=== PATIENT | male | born 1985 ===

== ENCOUNTER 2017-01-17 18:19 | Emergency (ER) | payer OTHER ==
--- NOTE | 2017-01-17 19:37 | C.PDOC ---
History Of Present Illness Patient presents to the ER with a complaint of left flank pain worsening within the last week. Patient states the pain has worsened today and notes he has taken motrin with no relief. Denies dysuria, fever, chills, nausea or vomiting. Time Seen by Provider: 01/17/17 19:36 Chief Complaint (Nursing): Abdominal Pain History Per: Patient History/Exam Limitations: no limitations Onset/Duration Of Symptoms: Days (7) Current Symptoms Are (Timing): Still Present Severity: Moderate Pain Scale Rating Of: 4 Location Of Pain/Discomfort: Other (Left flank) Radiation Of Pain To:: None Quality Of Discomfort: Unable To Describe Associated Symptoms: denies: Fever, Chills, Nausea, Vomiting, Urinary Symptoms Exacerbating Factors: None Alleviating Factors: None Recent travel outside of the [place]: No Past Medical History Reviewed: Historical Data, Nursing Documentation, Vital Signs Vital Signs: Last Vital Signs Temp 97.9 F 01/17/17 21:31 Pulse 104 H 01/17/17 21:31 Resp 20 01/17/17 21:31 BP 150/69 01/17/17 21:31 Pulse Ox 100 01/17/17 21:31 - Medical History PMH: No Chronic Diseases Surgical History: No Surg Hx Family History: States: No Known Family Hx - Social History Hx Alcohol Use: Yes Hx Substance Use: No - Immunization History Hx Influenza Vaccination: No Review Of Systems Constitutional: Negative for: Fever, Chills Gastrointestinal: Negative for: Nausea, Vomiting Genitourinary: Negative for: Dysuria Musculoskeletal: Positive for: Other (Left flank pain) Physical Exam - Physical Exam Appears: Non-toxic Skin: Warm, Dry Oral Mucosa: Moist Chest: Symmetrical, No Tenderness Cardiovascular: Rhythm Regular, No Murmur Respiratory: No Rales, No Rhonchi, No Wheezing Gastrointestinal/Abdominal: Soft, No Tenderness, Other (Tympanic to percussion) Back: CVA Tenderness (Mild left) Neurological/Psych: Oriented x3 ED Course And Treatment - Laboratory Results Result Diagrams: 01/17/17 20:16 01/17/17 20:16 O2 Sat by Pulse Oximetry: 98 (Room air) Pulse Ox Interpretation: Normal Progress Note: CT abd/pel w/o contrast, blood work and urinalysis ordered. Pepcid, zofran and IV fluids administered. Reevaluation Time: 22:15 Reassessment Condition: Improved Disposition Counseled Patient/Family Regarding: Studies Performed, Diagnosis, Need For Followup, Rx Given - Disposition Referrals: Nixon Herman MD [Staff Provider] - Disposition: HOME/ ROUTINE Disposition Time: 19:37 Condition: FAIR Prescriptions: Naproxen [Naprosyn] 1 tab PO BID PRN #25 tab PRN Reason: Pain Instructions: Back Pain (ED) - Clinical Impression Clinical Impression: Back pain - Scribe Statement The provider has reviewed the documentation as recorded by the Scribsherly Mock All medical record entries made by the Tonyibe were at my direction and personally dictated by me. I have reviewed the chart and agree that the record accurately reflects my personal performance of the history, physical exam, medical decision making, and the department course for this patient. I have also personally directed, reviewed, and agree with the discharge instructions and disposition.
[2017-01-17] MEDS ORDERED: Sodium Chloride 0.9% 1,000 ML IV ONE (19:55)
[2017-01-17 20:16] LABS: RBC URINE 1 /hpf (0-3); URINE BILIRUBIN NEGATIVE (NEGATIVE); URINE BLOOD 1+ (NEGATIVE); URINE COLOR Yellow (YELLOW); URINE GLUCOSE (UA) NORMAL (Normal); URINE KETONE NEGATIVE (NEGATIVE); URINE LEUKOCYTE ESTERASE NEG Leu/uL (Negative); URINE PROTEIN NEGATIVE (NEGATIVE); URINE UROBILINOGEN NORMAL mg/dL (0.2-1.0); WBC URINE < 1 /hpf (0-5)
[2017-01-17] MEDS ORDERED: Sodium Chloride 0.9% 250 ML IV ONE (20:19)
[2017-01-17 20:23] LABS: BASO % 0.5 % (0.0-2.0); EOS # 0.2 K/uL (0.0-0.7); EOS % 1.9 % (0.0-4.0); HEMATOCRIT 40.6 % (35.0-51.0); LYMPH # 2.4 K/uL (1.0-4.3); LYMPH % 23.8 % (20.0-40.0); MEAN CELL VOLUME 89.1 fL (80.0-94.0); MEAN CORPUSCULAR HEMOGLOBIN 29.6 pg (27.0-31.0); MEAN CORPUSCULAR HGB CONC 33.2 g/dL (33.0-37.0); MEAN PLATELET VOLUME 9.1 fL (7.2-11.7); MONO # 1.1 K/uL (0.0-0.8); MONO % 10.8 % (0.0-10.0); RED CELL DISTRIBUTION WIDTH 12.5 % (11.5-14.5); WHITE BLOOD COUNT 10.3 K/uL (4.8-10.8)
[2017-01-17 20:38] LABS: CHLORIDE 102 mmol/L (98-107)
[2017-01-17 20:39] LABS: POTASSIUM 3.9 mmol/L (3.6-5.2); SODIUM 139 mmol/L (132-148)
[2017-01-17 20:41] LABS: ALB/GLOB RATIO 1.4 (1.0-2.1); ALKALINE PHOSPHATASE 41 U/L (38-126); AST/SGOT 32 U/L (17-59); BILIRUBIN,TOTAL 0.8 mg/dL (0.2-1.3); BLOOD UREA NITROGEN 18 mg/dL (9-20); CARBON DIOXIDE 27 mmol/L (22-30); GFR AFRICAN-AMERICAN > 60; TOTAL PROTEIN 7.2 g/dL (6.3-8.3)
[2017-01-17 20:42] LABS: ALT/SGPT 25 U/L (21-72); CALCIUM 9.2 mg/dl (8.6-10.4); GLUCOSE,RANDOM 101 mg/dL (75-110)
[2017-01-17 22:17] VITALS: O2SAT 98
[2017-01-17 22:46] VITALS: BP 132/88; PULSE 76; RESP 18; TEMP 98.3
--- NOTE | 2017-01-18 10:16 | CT ---
PROCEDURE: CT Abdomen and Pelvis without intravenous contrast HISTORY: Abdominal pain COMPARISON: None. TECHNIQUE: Multiple contiguous axial images were performed through the abdomen and pelvis without intravenous contrast. Subsequently, sagittal and coronal reformatted images were obtained. Radiation dose: Total exam DLP = 1162 mGy-cm. This CT exam was performed using one or more of the following dose reduction techniques: Automated exposure control, adjustment of the mA and/or kV according to patient size, and/or use of iterative reconstruction technique. FINDINGS: LOWER THORAX: Unremarkable. LIVER: Unremarkable. No gross lesion or ductal dilatation. GALLBLADDER AND BILE DUCTS: Not well visualized. Contracted and or resected. PANCREAS: Unremarkable. No gross lesion or ductal dilatation. SPLEEN: Unremarkable. ADRENALS: Unremarkable. No mass. KIDNEYS AND URETERS: Unremarkable. No hydronephrosis. No solid mass. VASCULATURE: Unremarkable. No aortic aneurysm. BOWEL: Unremarkable. No obstruction. No gross mural thickening. APPENDIX: No findings to suggest acute appendicitis. PERITONEUM: Unremarkable. No free fluid. No free air. LYMPH NODES: Unremarkable. No enlarged lymph nodes. BLADDER: Unremarkable. REPRODUCTIVE: Unremarkable. BONES: Suggestion of a posterior disc osteophyte complex at the L5-S1 level. Scattered bone islands in the visualized osseous structures. OTHER FINDINGS: Partially calcified seminal vesicles. IMPRESSION: Negative acute. These findings were preliminarily reported at 9:32 p.m. on 01/17/[address] Alia Garcia from [facility].
== END 2017-01-17 22:35 | disposition home or self-care (01) ==
LOC: C.ER 18:19
DX: M54.6 Pain in thoracic spine (principal)
CPT/HCPCS: 74176; 80053; 81001; 83690; 85025; 96361; 96374; 96375; 99285; J2405; J7040

== ENCOUNTER 2017-05-02 07:19 | Day surgery (SDC) | payer OTHER ==
[2017-04-26 12:17] VITALS: BMI 39.9
[2017-05-02] MEDS ORDERED: Ciprofloxacin 400mg/200ml D5W 400 MG/200 ML BAG IVPB ONE (09:57)
[2017-05-02] MEDS ORDERED: Bupivacaine HCl 0.5% PF (10 ml) Inj ONE ×2 (09:57→10:41)
[2017-05-02] MEDS ORDERED: Propofol 10 mg/ml Inj (20 ML) ONE (10:02)
[2017-05-02] MEDS ORDERED: Midazolam 2 MG/2 ML VIAL ONE (10:02)
[2017-05-02] MEDS ORDERED: HYDROmorphone 0.5 mg/0.5 ml ISec IVP PRN (10:23)
[2017-05-02 11:13] VITALS: O2SAT 100
--- NOTE | 2017-05-02 11:51 | PCM.SURG1 ---
Surgeon's Initial Post Op Note - Surgeon's Notes Surgeon: Jojo CARTER Plastic Sewer: NONE Type of Anesthesia: General LMA Pre-Operative Diagnosis: L VARICOCELE Operative Findings: SAME Post-Operative Diagnosis: SAME Operation Performed: L VARICOCELECTOMY Specimen/Specimens Removed: L VARICOCELE Estimated Blood Loss: EBL {In ML}: 2 Blood Products Given: N/A Drains Used: No Drains Post-Op Condition: Good Date of Surgery/Procedure: 05/02/17 Time of Surgery/Procedure: 10:50
[2017-05-02 12:22] VITALS: RESP 18
[2017-05-02 12:47] VITALS: BP 105/48; PULSE 65; TEMP 97.7
--- NOTE | 2017-05-09 04:16 | OP ---
PROCEDURE DATE: 05/02/2017 PREOPERATIVE DIAGNOSIS: Left varicocele. POSTOPERATIVE DIAGNOSIS: Left varicocele. PROCEDURE: Left varicocelectomy. SURGEON: Dr. Arcelia Bagley. DESCRIPTION OF PROCEDURE: As follows; the patient was placed in the supine position. The abdomen and genitalia prepped and draped in the sterile fashion. Anesthesia was provided by the anesthesiologist. An oblique incision was made overlying the external inguinal ring. Incision was extended through the skin and subcutaneous tissue. Hemostasis was achieved using electrocautery. The incision was extended through Colin's fascia. The spermatic cord was identified at the point of exit from the external inguinal ring. A subinguinal varicocelectomy was thus performed. The spermatic cord was mobilized and circled with a Zoila drain. The spermatic cord was elevated into the wound over the Zoila drain. The external spermatic fascia and few mesenteric layers were incised between fine clamps in the longitudinal direction. The internal spermatic fascia was incised. The varicocele veins were identified and dissected free. The varix was identified and spared. The artery and lymphatic vessels were left intact. The varicocele veins were resected. Proximal and distal double ligatures of 3-0 Dexon were placed. The spermatic cord was reinspected. There were no residual varicocele veins. The vas was intact. The premesenteric and external oblique layers were reapproximated with interrupted sutures of 3-0 Dexon. Marcaine 0.5% was infiltrated into the spermatic cord. Marcaine was infiltrated into the subcutaneous base as well for postoperative analgesia. The spermatic cord was returned to its normal anatomical position. The wound was irrigated and inspected, hemostasis was completed. The subcutaneous tissue was reapproximated with interrupted sutures of 3-0 Dexon. Skin shahid and sterile dressing were applied. The patient tolerated the procedure without complication. Arcelia Bagley MD
== END 2017-05-02 12:45 | disposition home or self-care (01) ==
LOC: C.SDS 07:19
PROVIDERS: ATTEND Urology
DX: I86.1 Scrotal varices (principal)
CPT/HCPCS: 55530; 88302; J0744; J1170; J2250; J2704; J3010

== ENCOUNTER 2017-07-28 14:49 | Emergency (ER) | payer OTHER ==
[2017-07-28 14:50] VITALS: BMI 39.9
[2017-07-28 15:21] VITALS: RESP 20; O2SAT 98
[2017-07-28 16:20] LABS: BASO % 0.6 % (0.0-2.0); EOS # 0.2 K/uL (0.0-0.7); EOS % 2.6 % (0.0-4.0); HEMATOCRIT 41.6 % (35.0-51.0); LYMPH # 2.1 K/uL (1.0-4.3); LYMPH % 26.7 % (20.0-40.0); MEAN CELL VOLUME 90.3 fL (80.0-94.0); MEAN CORPUSCULAR HGB CONC 33.3 g/dL (33.0-37.0); MEAN PLATELET VOLUME 8.2 fL (7.2-11.7); MONO # 0.7 K/uL (0.0-0.8); MONO % 8.8 % (0.0-10.0); RED CELL DISTRIBUTION WIDTH 12.4 % (11.5-14.5); WHITE BLOOD COUNT 7.8 K/uL (4.8-10.8)
[2017-07-28 16:36] LABS: ALB/GLOB RATIO 1.3 (1.0-2.1); ALKALINE PHOSPHATASE 46 U/L (38-126); ALT/SGPT 39 U/L (21-72); AST/SGOT 36 U/L (17-59); BILIRUBIN,TOTAL 0.5 mg/dL (0.2-1.3); BLOOD UREA NITROGEN 16 mg/dL (9-20); CALCIUM 8.8 mg/dl (8.6-10.4); CARBON DIOXIDE 32 mmol/L (22-30); CHLORIDE 101 mmol/L (98-107); GFR AFRICAN-AMERICAN > 60; GLUCOSE,RANDOM 133 mg/dL (75-110); POTASSIUM 4.2 mmol/L (3.6-5.2); SODIUM 142 mmol/L (132-148); TOTAL PROTEIN 7.2 g/dL (6.3-8.3)
--- NOTE | 2017-07-28 16:47 | C.PDOC ---
History Of Present Illness 32 year old male presents to the ED c/o left anterior shoulder pain radiating to his neck for the past 3 days. Patient states pain worsens with movement of his left arm. Patient denies CP, SOB, weakness, numbness, fever, chills. Time Seen by Provider: 07/28/17 15:35 Chief Complaint (Nursing): Chest Pain History Per: Patient History/Exam Limitations: no limitations Onset/Duration Of Symptoms: Days Current Symptoms Are (Timing): Still Present Quality: "Pain" Modifying Factors: None Exacerbating Factors: None Alleviating Factors: None Recent travel outside of the [place]: No Additional History Per: Patient Past Medical History Reviewed: Historical Data, Nursing Documentation, Vital Signs Vital Signs: Last Vital Signs Temp 97.4 F L 07/28/17 17:59 Pulse 64 07/28/17 17:59 Resp 20 07/28/17 17:59 BP 101/53 L 07/28/17 17:59 Pulse Ox 98 07/28/17 17:59 - Medical History PMH: No Chronic Diseases Denies: Chronic Kidney Disease Surgical History: No Surg Hx Family History: States: Unknown Family Hx - Social History Hx Alcohol Use: Yes Hx Substance Use: No - Immunization History Hx Tetanus Toxoid Vaccination: No Hx Influenza Vaccination: No Hx Pneumococcal Vaccination: No Review Of Systems Constitutional: Negative for: Fever, Chills Cardiovascular: Negative for: Chest Pain Respiratory: Negative for: Cough, Shortness of Breath Gastrointestinal: Negative for: Nausea, Vomiting, Abdominal Pain Musculoskeletal: Positive for: Neck Pain (left side), Shoulder Pain (left) Skin: Negative for: Rash Neurological: Negative for: Weakness, Numbness Physical Exam - Physical Exam Appears: Non-toxic, No Acute Distress Skin: Normal Color, Warm, Dry Head: Atraumatic, Normacephalic Nose: No Discharge Oral Mucosa: Moist Neck: Normal ROM, Supple Chest: Symmetrical Cardiovascular: Rhythm Regular, No Murmur Respiratory: Normal Breath Sounds, No Rales, No Rhonchi, No Wheezing Gastrointestinal/Abdominal: Soft, No Tenderness Extremity: Normal ROM, No Pedal Edema, No Calf Tenderness, No Deformity, No Swelling Neurological/Psych: Oriented x3, Normal Speech, Normal Cognition Gait: Steady ED Course And Treatment - Laboratory Results Result Diagrams: 07/28/17 16:08 07/28/17 16:08 ECG: Interpreted By Me, Viewed By Me ECG Rhythm: Sinus Rhythm ECG Interpretation: Normal Interpretation Of ECG: Normal axis, normal intervals Rate From EC O2 Sat by Pulse Oximetry: 98 (On RA) Pulse Ox Interpretation: Normal Medical Decision Making Medical Decision Making: Impression : left anterior shoulder pain radiating to neck Plan: * EKG * Blood work * CXR * Toradol 30 mg IVP Disposition - Disposition Referrals: [facility] Nataly Mendez, [Non-Staff] - Disposition: HOME/ ROUTINE Disposition Time: 17:00 Condition: IMPROVED Additional Instructions: Thank you for letting us take care of you today. The emergency medical care you received today was directed at your acute symptoms. If you were prescribed any medication, please fill it and take as directed. It may take several days for your symptoms to resolve. Return to the Emergency Department if your symptoms worsen, do not improve, or if you have any other problems. Please contact your doctor or call one of the physicians/clinics you have been referred to that are listed on the Patient Visit Information form that is included in your discharge packet. Bring any paperwork you were given at discharge with you along with any medications you are taking to your follow up visit. Our treatment cannot replace ongoing medical care by a primary care provider (PCP) outside of the emergency department. Thank you for allowing the [facility] team to be part of your care today. Stay hydrated throughout the day. Follow up with your doctor in 2-3 days for outpatient management and further evaluation. Prescriptions: Cyclobenzaprine [Cyclobenzaprine HCl] 10 mg PO Q8 PRN #20 tab PRN Reason: Muscle Spasm Ibuprofen [Motrin] 600 mg PO Q6 PRN #20 tab PRN Reason: Pain, Moderate (4-7) Instructions: Noncardiac Chest Pain (ED) Forms: [employer] (Luxembourgish), Work Excuse - Clinical Impression Clinical Impression: Pleuritic pain - Scribe Statement The provider has reviewed the documentation as recorded by the Scribe Brandin Lancaster All medical record entries made by the Scribe were at my direction and personally dictated by me. I have reviewed the chart and agree that the record accurately reflects my personal performance of the history, physical exam, medical decision making, and the department course for this patient. I have also personally directed, reviewed, and agree with the discharge instructions and disposition.
--- NOTE | 2017-07-28 17:04 | RAD ---
HISTORY: chest pain COMPARISON: 05/26/2016 FINDINGS: LUNGS: No active pulmonary disease. PLEURA: No significant pleural effusion identified, no pneumothorax apparent. CARDIOVASCULAR: Normal. OSSEOUS STRUCTURES: No significant abnormalities. VISUALIZED UPPER ABDOMEN: Normal. OTHER FINDINGS: None. IMPRESSION: No active disease. No interval pathology noted
[2017-07-28 18:00] VITALS: BP 101/53; PULSE 64; TEMP 97.4
== END 2017-07-28 18:01 | disposition home or self-care (01) ==
LOC: C.ER 14:49
DX: R07.81 Pleurodynia (principal)
CPT/HCPCS: 71010; 80053; 84484; 85025; 96374; 99284; J1885

== ENCOUNTER 2017-12-17 23:04 | Emergency (ER) | payer OTHER ==
[2017-12-17 23:04] VITALS: BMI 39.9
[2017-12-17 23:21] VITALS: BP 132/78; PULSE 90; RESP 20; TEMP 98.7; O2SAT 99
--- NOTE | 2017-12-17 23:58 | C.PDOC ---
History Of Present Illness 32 year old male with PMHx of chronic back pain, managed by Motrin at home, presents to the ED c/o back pain radiating to his left buttock and left thigh that worsened over the past 2 days. Patient states his pain has been intermittent but worsened over the past 2 days and medications at home provide no relief. Patient denies new injury, fall, trauma, weakness, numbness, saddle anesthesia, bowel/urinary incontinence. Time Seen by Provider: 12/17/17 23:29 Chief Complaint (Nursing): Back Pain History Per: Patient History/Exam Limitations: no limitations Onset/Duration Of Symptoms: Days (2) Current Symptoms Are (Timing): Still Present Quality Of Discomfort: "Pain" Previous Symptoms: Back Pain Exacerbating Factor(s): Movement Recent travel outside of the [place]: No Additional History Per: Patient Past Medical History Reviewed: Historical Data, Nursing Documentation, Vital Signs Vital Signs: Last Vital Signs Temp 98.7 F 12/17/17 23:18 Pulse 90 12/17/17 23:18 Resp 20 12/18/17 00:10 BP 132/78 12/17/17 23:18 Pulse Ox 99 12/18/17 01:25 - Medical History PMH: Back Problems Denies: Chronic Kidney Disease Surgical History: No Surg Hx Family History: States: Unknown Family Hx - Social History Hx Alcohol Use: Yes Hx Substance Use: No - Immunization History Hx Tetanus Toxoid Vaccination: No Hx Influenza Vaccination: No Hx Pneumococcal Vaccination: No Review Of Systems Constitutional: Negative for: Fever, Chills Cardiovascular: Negative for: Chest Pain Respiratory: Negative for: Shortness of Breath Gastrointestinal: Negative for: Nausea, Vomiting Genitourinary: Negative for: Incontinence Musculoskeletal: Positive for: Back Pain Skin: Negative for: Rash Physical Exam - Physical Exam Appears: Non-toxic, No Acute Distress Skin: Normal Color, Warm, Dry Head: Atraumatic, Normacephalic Eye(s): bilateral: Normal Inspection Chest: Symmetrical Cardiovascular: Rhythm Regular Respiratory: Normal Breath Sounds, No Rales, No Rhonchi, No Wheezing Gastrointestinal/Abdominal: Soft, No Tenderness, No Guarding, No Rebound Back: No CVA Tenderness, Paraspinal Tenderness (paralumbar ) Extremity: Bilateral: Atraumatic, Normal Color And Temperature, Normal ROM Neurological/Psych: Oriented x3, Normal Speech, Normal Motor, Normal Sensation Gait: Steady ED Course And Treatment O2 Sat by Pulse Oximetry: 99 (ON RA) Pulse Ox Interpretation: Normal Progress Note: Plan: - Toradol 30 mg IM. On reassessment, patient is resting comfortably, and is in no acute distress. Patient was instructed to follow up with physician/clinic in 1-2 days for further evaluation. Disposition Counseled Patient/Family Regarding: Diagnosis, Need For Followup - Disposition Disposition: HOME/ ROUTINE Disposition Time: 00:15 Condition: STABLE Additional Instructions: continue current medications Follow up with PMD tomorrow Return to ER if worse Instructions: Sciatica (DC) Forms: [employer] (Vietnamese) - Clinical Impression Clinical Impression: Sciatica - PA / LINE THERAPIST / Resident Statement MD/DO has reviewed & agrees with the documentation as recorded. - Scribe Statement The provider has reviewed the documentation as recorded by the Scribe Brandin Lancaster All medical record entries made by the Scribe were at my direction and personally dictated by me. I have reviewed the chart and agree that the record accurately reflects my personal performance of the history, physical exam, medical decision making, and the department course for this patient. I have also personally directed, reviewed, and agree with the discharge instructions and disposition.
== END 2017-12-18 00:10 | disposition home or self-care (01) ==
LOC: C.ER 23:04
DX: M54.32 Sciatica, left side (principal)
CPT/HCPCS: 96372; 99283; J1885